=== PATIENT | male | born 1960 | race Caucasian/White ===

== ENCOUNTER → 2018-01-10 13:48 | Outpatient (CLI) | payer OTHER, SELFPAY ==
--- NOTE | 2018-01-10 | DI.ECHO.S_ITS ---
[place] [facility]---------+ [facility] +---------+ : : [address] : : : : [id number] : : : : Phone: [phone]+ Echocardiogram Report + + :Name: JOAQUINA RODRÍGUEZ Study Date: 01/10/2018 Height: 70 in : :[facility] Weight: 187 lb : : Gender: Male BSA: 2.0 m2 : :: 1960 Age: 57 yrs BP: 120/78 mmHg: :Reason For Study: Dyspnea : : Performed By: Alejandra Rai : :Referring: EFREN MORENO S : + + Interpretation Summary Normal sinus rhythm. Normal LV size, wall thickness, wall motion and LV systolic function. EF is 60-65%; stage I diastolic dysfunction. Normal chamber sizes. No significant valvular abnormalities. Procedure: A two-dimensional transthoracic echocardiogram with color flow and Doppler was performed. The study quality was technically adequate. There is no prior echocardiogram noted for this patient. The patient was in normal sinus rhythm during the exam. Left Ventricle: The left ventricle is normal in size. Left ventricular wall thickness is normal. There is no ventricular septal defect visualized. The ejection fraction is estimated to be 60-65%. There are no focal wall motion abnormalities. Diastolic parameters suggest a relaxation abnormality of the left ventricle, consistent with probable normal filling pressures. Right Ventricle: The right ventricle is normal in size and function. Atria: Both atria are normal in size. There is no Doppler evidence for an interatrial shunt. Mitral Valve: The mitral valve is normal in structure and function. There is trace mitral regurgitation. Aortic Valve: The aortic valve is normal in structure and function. There is trace aortic regurgitation. Tricuspid Valve: The tricuspid valve is normal in structure and function. There is a trace or physiologic amount of tricuspid regurgitation. The right ventricular systolic pressure is estimated to be at least 29 mmHg based on an estimated right atrial pressure of 3 mm Hg. Pulmonic Valve: The pulmonic valve is not well seen, but is grossly normal. There is a trace or physiologic amount of pulmonic regurgitation. Great Vessels: The aortic root is normal size. The ascending aorta is normal in size. The aortic arch is normal in size. The pulmonary artery is not well visualized, but is probably normal size. The IVC is of normal diameter and collapses greater than 50% with a sniff. This suggests a low right atrial pressure of 3 mm Hg. Pericardium/ Pleura There is no pericardial effusion. MMode/2D Measurements & Calculations LVIDd: 5.5 cm LVOT diam: 2.1 cm LVIDs: 3.6 cm Ao root diam: 3.9 cm FS: 33.8 % Aortic Jxn: 2.9 cm EPSS: 0.31 cm asc Aorta Diam: 3.1 cm IVSd: 0.58 cm Ao Arch Diam (Prox Trans): 2.5 cm LVPWd: 0.69 cm LV augustine. diameter/BSA (cm/m^2): 2.7 LV sys. diameter/BSA (cm/m^2): 1.8 LA A2 area: 20.3 cm2 RA long axis: 5.1 cm LA A4 area: 18.0 cm2 RA area: 16.3 cm2 LA length (vol): 5.4 cm RA vol: 44.4 ml LA vol: 57.7 ml RA : 21.9 ml/m2 LA vol index: 28.4 ml/m2 IVC diam: 2.0 cm RVD1 (basal): 3.2 cm RVD2 (mid): 2.6 cm TAPSE: 2.3 cm Doppler Measurements & Calculations Ao V2 max: 148.3 cm/sec LVOT Max Cameron: 77.3 cm/sec Ao V2 mean: 90.3 cm/sec LV V1 max P.4 mmHg Ao max P.8 mmHg LV V1 VTI: 15.6 cm Ao mean P.9 mmHg CUAUHTEMOC(I,D): 2.2 cm2 Ao V2 VTI: 25.5 cm CUAUHTEMOC(V,D): 1.9 cm2 sev ratio: 0.61 CUAUHTEMOC indexed to BSA (cm^2/m^2): 1.1 MV E max cameron: 68.3 cm/sec TR max cameron: 253.8 cm/sec MV A max cameron: 76.2 cm/sec TR max P.8 mmHg MV E/A: 0.90 PA V2 max: 62.6 cm/sec Med Peak E' Cameron: 8.3 cm/sec PA V2 mean: 39.1 cm/sec E/E' med: 8.2 PA mean P.73 mmHg Lat Peak E' Cameron: 8.4 cm/sec PA Accel Time: 0.12 sec E/E' lat: 8.1 E/e' average: 8.2 MV dec time: 0.28 sec MV P1/2t: 81.7 msec MV P1/2t max cameron: 68.4 cm/sec MVA(P1/2t): 2.7 cm2 Reading Physician:06:56 AM
== END ==
PROVIDERS: Visit Provider Nurse Practitioner Acute Care
DX: R06.00 Dyspnea, unspecified (principal)
CPT/HCPCS: 93306

== ENCOUNTER → 2021-03-20 09:58 | Outpatient (CLI) | payer OTHER, SELFPAY ==
[2021-03-20 10:35] LABS: COVID19 -Nasal RAPID POSITIVE (Negative)
== END ==
PROVIDERS: Visit Provider Nurse Practitioner Critical Care Medicine
DX: Z20.822 Contact with and (suspected) exposure to COVID-19 (principal)
CPT/HCPCS: 87635

== ENCOUNTER → 2022-03-01 15:23 | Outpatient (CLI) | payer OTHER, SELFPAY ==
--- NOTE | 2022-03-01 15:25 | DI.CT.S_ITS ---
PROCEDURE: CT CHEST WO CON INDICATIONS: SOB/DYSPNEA ON EXERTION AND FATIGUE TECHNIQUE: Noncontrast 5 mm thick sections acquired from the pulmonary apices to the posterior costophrenic angles. 1 mm lung window, 5 mm thick coronal and sagittal and 7 mm axial MIP reformats were then acquired. For radiation dose reduction, the following was used: automated exposure control, adjustment of mA and/or kV according to patient size. COMPARISON: None. FINDINGS: Image quality: Excellent. Lungs and pleura: No acute air space opacities. No pleural effusions or pneumothorax. Central and peripheral airways are patent and normal in caliber. Mediastinum: Heart size is normal. No pericardial effusion. No mediastinal adenopathy by size criteria. Thoracic aorta and central pulmonary arteries are normal in size. Scattered atheromatous calcifications are present within the aortic arch. Esophagus is normal in caliber. No hiatal hernia. Bones and chest wall: No suspicious bony lesions. No vertebral body compression fractures. No axillary or supraclavicular adenopathy by size criteria. Thyroid gland is unremarkable. Abdomen: Visualized upper abdominal solid organs and bowel loops appear normal in the absence of contrast. IMPRESSION: 1. No acute pulmonary findings. No findings to explain patient's symptoms. No pulmonary nodules or suspicious mass lesions. Dictated by: Chel Yip M.D. on 03/01/2022 at 16:18 Approved by: Chel Yip M.D. on 03/01/2022 at 16:21
== END ==
PROVIDERS: Referring Provider Nurse Practitioner Primary Care; Visit Provider Nurse Practitioner Primary Care
DX: R06.02 Shortness of breath (principal); R06.00 Dyspnea, unspecified; R53.83 Other fatigue
CPT/HCPCS: 71250